=== PATIENT | male | born 1965 | race Hispanic/Latino ===

== ENCOUNTER → 2018-06-07 | Day surgery (SDC) | payer SELFPAY ==
[2018-05-31 10:52] LABS: BASOPHILS % 0.2 % (0.0-1.0); EOSINOPHILS # (AUTO) 0.1 (0.0-0.4); EOSINOPHILS % 1.3 % (0.0-6.0); HEMATOCRIT 42.7 % (38.2-49.6); HEMOGLOBIN 14.6 g/dL (14.0-18.0); LYMPHOCYTES # (AUTO) 1.5 (1.0-3.2); LYMPHOCYTES % 17.2 % (18.0-39.1); MEAN CORPUSCULAR HEMOGLOBIN 29.6 pg (28-32); MEAN CORPUSCULAR HGB CONC 34.2 g/dL (31-35); MEAN CORPUSCULAR VOLUME 86.4 fL (81-99); MONOCYTES # (AUTO) 0.6 (0.2-0.8); MONOCYTES % 7.5 % (4.4-11.3); NEUTROPHILS # (AUTO) 6.2 (2.1-6.9); NEUTROPHILS % 73.3 % (38.7-80.0); PLATELET COUNT 271 x10e3/uL (140-360); RED BLOOD COUNT 4.94 x10e6/uL (4.3-5.7); RED CELL DISTRIBUTION WIDTH 13.2 % (11.7-14.4)
[2018-05-31 11:15] LABS: BLOOD UREA NITROGEN 16 mg/dL (7-26); BUN/CREATININE RATIO 22 (6-25); CALCIUM 9.6 mg/dL (8.4-10.2); CARBON DIOXIDE 24 mmol/L (22-29); CHLORIDE 103 mmol/L (98-107); CREATININE, SERUM 0.73 mg/dL (0.72-1.25); EST GLOMERULAR FILTRATION RATE > 60 ML/MIN (60-); GLUCOSE 135 mg/dL (74-118); SODIUM 138 mmol/L (136-145)
[~2018-06-07] MED LIST: ADVIL PO; BUPIVACAINE 0.25%/EPI 30ML SDV INJ ONE; DEXAMETHASONE SOD PHOS INJ 4 MG/ML VIAL IV ONE; FENTANYL CITRATE/PF 100MCG/2 ML INJ ONE; GELATIN SPONGE 12-7MM ONE; KETOROLAC TROMETHAMINE 30 MG/ML VIAL IV ONE; LIDOCAINE HCL 1% LOCAL INJ 20 ML VIAL ONE; LIDOCAINE HCL 2% 30 ML TUBE ONE; LIDOCAINE HCL 2% LOCAL INJ 5 ML SDV VIAL INJ ONE; MIDAZOLAM HCL 2 MG/2 ML VIAL ONE; ONDANSETRON HCL INJ 2 MG/ML VIAL IV ONE; PROPOFOL IV EMULSION 10 MG/ML 20 ML VIAL IV ONE; SEVOFLURANE INHAL SOLN 250 ML PEN BTL INH ONE
--- OUTSIDE RECORDS SUMMARY | 2018-06-07 05:27 | XMS REPORT | Clinical Summary ---
Author Author [facility] Organization [facility] Address Unknown Phone Unavailable Care Team Providers Care Mgmt Consultant Name Role Phone PCP Unavailable Allergies Active Allergy Reactions Severity Noted Date Comments No Known Allergies 10/06/2009 Current Medications Prescription Sig. Disp. Refills Start End Date Status Date IBUPROFEN 800 MG take 1 tablet (800 mg) by 30 0 10/06/19 Active TABIndications: Lumbago oral route 3 times per 10 day with food CYCLOBENZAPRINE 10 MG take 1 tablet (10 mg) by 30 0 10/06/19 Active TABIndications: Lumbago oral route 1 time per day 10 clindamycin (CLEOCIN HCL) Take 1 capsule by mouth 3 30 capsule 0 04/03/20 04/13/20 300 mg times daily for 10 days. 18 18 capsuleIndications: Rectal abscess Hospital, Clinic, or Ordered Dose Route Frequency Start End Date Status Other Facility Date Administered Medication cefTRIAXone (ROCEPHIN) 1 g IM ONCE 04/03/20 04/03/20 Ended injection 1 gIndications: 18 18 Rectal abscess Active Problems No known active problems Encounters Date Type Specialty Care Team Description 04/03/2018 Office Visit Family Practice Daphne Nielsen MD Rectal abscess (Primary Dx) after 06/06/2017 Family History Medical History Relation Name Comments Stroke Mother Relation Name Status Comments Maternal Grandfather Maternal Grandmother Mother Paternal Grandfather Paternal Grandmother Social History Tobacco Use Types Packs/Day Years Used Date Never Smoker Smokeless Tobacco: Never Used Alcohol Use Drinks/Week oz/Week Comments No Sex Assigned at Date Recorded Not on file Last Filed Vital Signs Vital Sign Reading Time Taken Blood Pressure 128/72 04/03/2018 12:08 PM CDT Pulse 89 04/03/2018 12:08 PM CDT Temperature 36.9 C (98.4 F) 04/03/2018 12:08 PM CDT Respiratory Rate 18 04/03/2018 12:08 PM CDT Oxygen Saturation - - Inhaled Oxygen - - Concentration Weight 84.1 kg (185 lb 8 oz) 04/03/2018 12:08 PM CDT Height 154.9 cm (5' 1") 04/03/2018 12:08 PM CDT Body Mass Index 35.05 04/03/2018 12:08 PM CDT Plan of Treatment Health Maintenance Due Date Last Done Comments Colorectal Cancer Scrn 2015 Annual (FIT/FOBT) Age 50 to 75 IMM Influenza Seasonal 05/15/2018May to October (>/=19 yrs) Results Not on fileafter 06/06/2017
--- OUTSIDE RECORDS SUMMARY | 2018-06-07 05:27 | XMS REPORT ---
Author Author [facility] Address Unknown Phone Unavailable Care Team Providers Care Booker Name Role Phone Unavailable Unavailable Problems This patient has no known problems. Allergies, Adverse Reactions, Alerts This patient has no known allergies or adverse reactions. Medications This patient has no known medications. Encounters Start Date/Time End Date/Time Encounter Type Admission Type Attending Clinicians Care Facility Care Department Encounter ID 2018-04-03 12:08:11 2018-04-03 12:08:11 Outpatient [facility] [id number]
--- NOTE | 2018-06-07 10:57 | Operative Report ---
DATE OF PROCEDURE: June 07, 2018 PREOPERATIVE DIAGNOSIS: Anorectal fistula. 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 OPERATION PERFORMED: Examination under anesthesia and full-thickness biopsies of the anorectal tumor. ANESTHESIA: General. COMPLICATIONS: None. ESTIMATED BLOOD LOSS: Minimal. DESCRIPTION OF PROCEDURE: With the patient lying in bed in the lithotomy position, under good general endotracheal anesthesia, the perineum was prepped with Betadine solution and draped in the usual manner. Examination of the perianal area revealed at the 7 o'clock position there was an ulcerated area. Upon digital examination, there was an associated hard mass with it. This extended in a submucosal fashion all the way up about an inch above the dentate line, where there was a palpable mass transanally. There was some cobblestoning of the mucosa in this area, but this appeared to be coming from outside the bowel, not originating from inside of the rectum itself. This had all of the appearance of an anorectal tumor rather than a chronic fistula, so we decided to simply go ahead and do some full-thickness biopsies of the external component of the mass at the 7 o'clock position. A wedge was then taken all the way down deep into the mass, and this was sent for frozen section. A 2nd area deep in the mass was then taken and sent for permanent section. Hemostasis was ascertained. The whole area was then infiltrated with 0.25% Marcaine with epinephrine and 1% lidocaine. Once hemostasis was ascertained, Gelfoam was placed in the wound. A dressing was applied. The sponge, lap and needle count was correct. Patient tolerated the procedure well and returned to the recovery room in stable condition. Job#: [id number]
[2018-06-07 11:15] VITALS: BP 124/77
== END | disposition home or self-care (01) ==
LOC: OR 05:24
PROVIDERS: ATTEND Surgery
DX: K60.5 Anorectal fistula (principal); C21.8 Malignant neoplasm of overlapping sites of rectum, anus and anal canal; Z01.810 Encounter for preprocedural cardiovascular examination; Z01.812 Encounter for preprocedural laboratory examination; F17.210 Nicotine dependence, cigarettes, uncomplicated
CPT/HCPCS: 36415; 45100; 80048; 85025; 88305; 88331; 88342; 93005 ×2; J1100; J1885; J2001 ×2; J2250; J2405; J2704